=== PATIENT | male | born 1935 | race African-American/Black ===

== ENCOUNTER 2020-01-28 06:34 | Day surgery (SDC) | payer OTHER ==
[2020-01-27 10:14] VITALS: BMI 24.0
[2020-01-28] MEDS ORDERED: BUPIVACAINE HCL/PF 0.25% (2.5MG/ML) 10 ML VIAL ONE (11:43)
[2020-01-28] MEDS ORDERED: BACITRACIN 15 GM TUBE TOPICAL OINTMENT ONE (11:44)
[2020-01-28] MEDS ORDERED: ceFAZolin SODIUM 1 GM VIAL ONE (12:15)
[2020-01-28] MEDS ORDERED: DEXAMETHASONE SOD PHOSPHATE 4 MG/1 ML VIAL ONE (12:24)
[2020-01-28] MEDS ORDERED: KETOROLAC TROMETHAMINE 30 MG/1 ML VIAL ONE (12:24)
[2020-01-28] MEDS ORDERED: ceFAZolin 2 GRAM PREMIX BAG IVPB ONE (12:25)
[2020-01-28] MEDS ORDERED: BUPIVACAINE HCL/PF 0.25% (2.5MG/ML) 10 ML VIAL IJ ONE ×2 (12:34)
[2020-01-28] MEDS ORDERED: ONDANSETRON 4 MG/2 ML VIAL IVPUSH PRN (14:03)
[2020-01-28] MEDS ORDERED: oxyCODONE HCL 5 MG TABLET PO PRN (14:03)
[2020-01-28] MEDS ORDERED: LABETALOL HCL 5 MG/1 ML (100MG/20 ML VIAL) IVPUSH ONE (14:35)
[2020-01-28] MEDS ORDERED: DESFLURANE GAS 240 ML BOTTLE IH ONE (14:55)
[2020-01-28 18:04] VITALS: BP 148/68; PULSE 62; TEMP 97.1
== END 2020-01-28 17:10 | disposition home or self-care (01) ==
LOC: JASU-SURG 06:34
PROVIDERS: ATTEND Urology
PROC: 0VTTXZZ Resection of Prepuce, External Approach (ICD-10-PCS; principal; 2020-01-28 13:00)
DX: N47.1 Phimosis (principal)
CPT/HCPCS: 88304-TC; 94760

== ENCOUNTER 2020-01-30 14:36 | Emergency (ER) | payer OTHER ==
[2020-01-30 15:00] VITALS: BP 162/54; PULSE 60; TEMP 98.2; BMI 24.0
== END 2020-01-30 16:12 | disposition home or self-care (01) ==
LOC: JER 14:36
DX: S31.20XA Unspecified open wound of penis, initial encounter (principal)
CPT/HCPCS: 99282-25